=== PATIENT | female | born 1950 | race Caucasian/White ===

== ENCOUNTER 2016-09-22 11:32 | Emergency (ER) | payer OTHER ==
[~2016-09-22] VITALS: Ht 152.4 cm; Wt 65.5 kg
[~2016-09-22 11:32] MED LIST: AMLO5TAB4 PO; ATOR10TA65 PO; CIPR500T4 PO; FAMO40TA52 PO; FLUT9.9S NASAL; HYDR-3720 PO; LEVO75TA65 PO; LISI-313 PO; METR500T14 PO; OMEP40CA6 PO; PANT40TA3 PO
[2016-09-22 12:07] VITALS: Ht 152.4 cm; Wt 65.5 kg
[2016-09-22] MEDS ORDERED: SOD CHLORIDE 0.9% 1,000 ML IV STA (16:31)
[2016-09-22] MEDS ORDERED: KETOROLAC 15 MG INJ IV STA (16:31)
[2016-09-22] MEDS ORDERED: ONDANSETRON 4 MG INJ IV STA (16:31)
[2016-09-22] MEDS ORDERED: ENALAPRILAT 1.25 MG INJ IV ONE (17:00)
[2016-09-22 17:10] LABS: ADD SCAN DIFF NO
[2016-09-22 17:12] VITALS: RESP 16
[2016-09-22 17:13] LABS: BASOPHILS % 0.3 % (0.0-2.0); EOSINOPHILS # 0.1 10^3/ul (0.0-0.5); EOSINOPHILS % 0.8 % (0.0-7.0); HEMATOCRIT 38.1 % (37.0-47.0); HEMOGLOBIN 12.6 g/dl (12.0-16.0); LYMPHOCYTES # 2.4 10^3/ul (0.8-2.9); MEAN CORPUSCULAR HGB CONC 33.1 g/dl (32.0-37.0); MEAN CORPUSCULAR VOLUME 81.8 fl (82.0-101.0); MEAN PLATELET VOLUME 9.6 fl (7.4-10.4); MONOCYTE # 1.1 10^3/ul (0.3-0.9); MONOCYTES % 7.7 % (0.0-11.0); NEUTROPHIL # 10.6 10^3/ul (1.6-7.5); NEUTROPHILS % 73.8 % (39.0-77.0); PLATELET COUNT 380 10^3/UL (140-415); RED BLOOD COUNT 4.66 10^6/ul (4.20-5.40); WHITE BLOOD COUNT 14.4 10^3/ul (4.8-10.8)
[2016-09-22 17:24] LABS: ALBUMIN 4.6 g/dl (3.3-4.9)
[2016-09-22 17:25] LABS: CHLORIDE 108 mmol/L (97-110); POTASSIUM 4.3 mmol/L (3.5-5.1); SODIUM 146 mmol/L (135-144)
[2016-09-22 17:27] LABS: ALBUMIN/GLOBULIN RATIO 1.02; ALKALINE PHOSPHATASE 157 IU/L (42-121); ANION GAP 20 (8-16); ASPARTATE AMINO TRANSFERASE 26 IU/L (15-46); BILIRUBIN,INDIRECT 0.1 mg/dl (0-1.1); BILIRUBIN,TOTAL 0.1 mg/dl (0.2-1.3); CARBON DIOXIDE 22 mmol/L (21-31); CREATININE 2.01 mg/dl (0.44-1.00); TOTAL PROTEIN 9.1 g/dl (6.1-8.1)
[2016-09-22 17:28] LABS: ALANINE AMINOTRANSFERASE 22 IU/L (13-69); BLOOD UREA NITROGEN 31 mg/dl (7-20); CALCIUM 9.6 mg/dl (8.4-10.2); GLUCOSE 82 mg/dl (70-220)
[2016-09-22] MEDS ORDERED: HYDR-3671 PO (17:34)
--- NOTE | 2016-09-22 17:36 | RADRPT ---
PROCEDURE: XR Chest. CLINICAL INDICATION: Abdominal Pain TECHNIQUE: Single frontal view of the chest was obtained COMPARISON: 06/14/2012 FINDINGS: Atherosclerotic changes are seen in the aortic arch. The cardiac silhouette is unremarkable. The lungs are clear. There is no pleural effusion or pneumothorax. IMPRESSION: No definite abnormalities are identified. RPTAT:AAJJ Chris Whyte Physician Date Time Electronically viewed and signed by Chris Whyte Physician on 09/22/2016 17:36 /
[2016-09-22 17:44] VITALS: BP 168/66; PULSE 83; TEMP 98.7
[2016-09-22 17:44] LABS: TROPONIN-I < 0.012 ng/ml (0.00-0.12)
[2016-09-22 17:46] LABS: ADD UMIC YES; URINE BILIRUBIN (Dip) NEGATIVE (NEGATIVE); URINE BLOOD (Dip) NEGATIVE (NEGATIVE); URINE COLOR LT. YELLOW (YELLOW); URINE GLUCOSE (Dip) NEGATIVE (NEGATIVE); URINE KETONES (Dip) NEGATIVE (NEGATIVE); URINE LEUKOCYTE ESTERASE (Dip) NEGATIVE (NEGATIVE); URINE NITRITE (Dip) NEGATIVE (NEGATIVE); URINE TOTAL PROTEIN (Dip) 2+ (NEGATIVE); URINE UROBILINOGEN (Dip) 0.2 E.U./dL (0.1-1.0)
[2016-09-22 18:06] LABS: BACTERIA,URINE OCCASIONAL; URINE RBCS 0-2 /HPF (0)
--- NOTE | 2016-09-22 22:54 | ERD ---
ER Documentation Chief Complaint Date/Time DATE: 09/22/16 TIME: 22:46 Chief Complaint REFERRED BY CLINIC FOR HTN. BP AT TRIAGE 212/91. HPI 66-year-old woman sent here by PMD for evaluation of hypertension. Systolic blood pressure was over 200 mmHg despite using her medications as prescribed. She denies chest pain or shortness of breath, no calf or leg swelling, no fevers or chills, no vomiting or diarrhea. ROS All systems reviewed and are negative except as per history of present illness. Medications Home Meds Reported Medications Hydralazine Hcl* (Hydralazine Hcl*) 25 Mg Tab, 25 MG PO QID, #60 TAB 09/22/16 Atorvastatin Calcium (Atorvastatin Calcium) 10 Mg Tablet, 10 MG PO QHS, #30 TAB 01/11/16 Levothyroxine Sodium* (Levoxyl*) 75 Mcg Tablet, 75 MCG PO BEFORE BREAKFAST, #30 TAB 01/11/16 Omeprazole* (Omeprazole*) 40 Mg Capsule.dr, 40 MG PO DAILY, #30 CAP 01/11/16 Discontinued Reported Medications Famotidine* (Famotidine*) 40 Mg Tablet, 40 MG PO HS, #30 TAB 01/11/16 Fluticasone Propionate (Flonase Allergy Relief) 9.9 Ml [place].susp, 2 SPRAY NASAL DAILY, #1 BOTTLE TO EACH NOSTRIL 01/11/16 Pantoprazole* (Protonix*) 40 Mg Tablet.dr, 40 MG PO DAILY, TAB 01/11/16 Lisinopril* (Lisinopril*) 5 Mg Tablet, 5 MG PO DAILY, #30 TAB 01/11/16 Amlodipine Besylate* (Norvasc*) 5 Mg Tablet, 5 MG PO DAILY 06/11/12 Discontinued Scripts Hydrocodone Bit-Acetaminophen* ([place]*) 7.5-325 Tablet, 1 TAB PO Q4H Y for PAIN , #20 TAB Prov:CHICO ANG DO 01/11/16 Metronidazole* (Metronidazole*) 500 Mg Tablet, 500 MG PO TID, #30 TAB Prov:CHICO ANG DO 01/11/16 Ciprofloxacin Hcl* (Ciprofloxacin Hcl*) 500 Mg Tablet, 500 MG PO BID for 7 Days , TAB Prov:CHICO ANG DO 01/11/16 Allergies Allergies: Coded Allergies: No Known Allergies (Verified Allergy, Unknown, 09/22/16) PMhx/Soc Hypertension, obesity, gastritis, hypothyroidism, hypercholesterolemia History of Surgery: Yes (left hemicolectomy) Anesthesia Reaction: No Hx Neurological Disorder: No Hx Respiratory Disorders: No Hx Cardiac Disorders: Yes (HTN; HYPERLIPIDEMIA) Hx Psychiatric Problems: No Hx Miscellaneous Medical Probl: Yes (diverticulitis, hyperlipidemia) Hx Alcohol Use: No Hx Substance Use: No Hx Tobacco Use: No Smoking Status: Never smoker FmHx Family History: No diabetes Physical Exam Vitals Vital Signs Date Time Temp Pulse Resp B/P Pulse Ox O2 Delivery O2 Flow Rate FiO2 09/22/16 17:44 98.7 83 168/66 100 Room Air 09/22/16 17:12 98.7 84 16 174/71 100 Room Air 09/22/16 15:25 95 16 235/102 100 Room Air 09/22/16 14:22 94 16 212/96 100 Room Air 09/22/16 13:39 104 20 223/101 Room Air 09/22/16 12:07 98.8 107 20 212/91 97 Physical Exam GENERAL: Well-developed, well-nourished, well-hydrated, in no apparent distress , looks nontoxic in appearance HEENT: Moist mucous membranes, pink conjunctiva, no cervical spine tenderness or step-off deformities, no goiter, no jaundice or icterus, extraocular movements intact without pain. No submandibular induration, and no pharyngeal erythema NEURO: Alert and oriented 3, cranial nerves II through XII intact bilaterally, pupils equal round reactive to light, no focal deficits or facial asymmetry, sensation intact distally Strength 5/5 in upper and lower extremities bilaterally CARDIAC: Regular rate and rhythm, no murmurs rubs or gallops LUNGS: Clear bilaterally no wheezing crackles or stridor ABDOMEN: Soft nontender, no guarding, no rigidity, no rebound, no psoas sign no obturator sign. Normoactive bowel sounds SKIN: Warm and dry to touch, no abrasions, contusions, or hematomas, no lacerations, no ecchymosis, no target lesions, and without ulcers EXTREMITIES: No clubbing cyanosis or edema, calves are bilaterally symmetrical, no Homans sign, no popliteal cord sign. Distal pulses equal and bilateral PSYCH: Normal affect without agitation or irritability Result Diagram: 09/22/16 1649 09/22/16 1649 Results 24 hrs Laboratory Tests Test 09/22/16 16:49 09/22/16 16:56 White Blood Count 14.410^3/ul Red Blood Count 4.6610^6/ul Hemoglobin 12.6g/dl Hematocrit 38.1% Mean Corpuscular Volume 81.8fl Mean Corpuscular Hemoglobin 27.0pg Mean Corpuscular Hemoglobin Concent 33.1g/dl Red Cell Distribution Width 14.0% Platelet Count 58960^3/UL Mean Platelet Volume 9.6fl Neutrophils % 73.8% Lymphocytes % 17.0% Monocytes % 7.7% Eosinophils % 0.8% Basophils % 0.3% Nucleated Red Blood Cells % 0.0/100WBC Neutrophils # 10.610^3/ul Lymphocytes # 2.410^3/ul Monocytes # 1.110^3/ul Eosinophils # 0.110^3/ul Basophils # 0.010^3/ul Nucleated Red Blood Cells # 0.010^3/ul Sodium Level 146mmol/L Potassium Level 4.3mmol/L Chloride Level 108mmol/L Carbon Dioxide Level 22mmol/L Anion Gap 20 Blood Urea Nitrogen 31mg/dl Creatinine 2.01mg/dl Glucose Level 82mg/dl Calcium Level 9.6mg/dl Total Bilirubin 0.1mg/dl Direct Bilirubin 0.00mg/dl Indirect Bilirubin 0.1mg/dl Aspartate Amino Transf (AST/SGOT) 26IU/L Alanine Aminotransferase (ALT/SGPT) 22IU/L Alkaline Phosphatase 157IU/L Troponin I < 0.012ng/ml Total Protein 9.1g/dl Albumin 4.6g/dl Globulin 4.50g/dl Albumin/Globulin Ratio 1.02 Lipase 322U/L Urine Color LT. YELLOW Urine Clarity CLEAR Urine pH 6.0 Urine Specific [place] <=1.005 Urine Ketones NEGATIVE Urine Nitrite NEGATIVE Urine Bilirubin NEGATIVE Urine Urobilinogen 0.2 E.U./dL Urine Leukocyte Esterase NEGATIVE Urine Microscopic RBC 0-2/HPF Urine Microscopic WBC 0-2/HPF Urine Bacteria OCCASIONAL Urine Hemoglobin NEGATIVE Urine Glucose NEGATIVE% Urine Total Protein 2+ Current Medications Medications (Trade) Dose Ordered Sig/Barbara Route PRN Reason Start Time Stop Time Status Last Admin Dose Admin Sodium Chloride (NS) 1,000 ml @ 1,000 mls/hr Q1H STAT IV 09/22/16 16:31 09/22/16 17:30 DC 09/22/16 16:59 Ondansetron HCl (Zofran Inj) 4 mg ONCE STAT IV 09/22/16 16:31 09/22/16 16:33 DC 09/22/16 16:52 Ketorolac Tromethamine (Toradol) 15 mg ONCE STAT IV 09/22/16 16:31 09/22/16 16:33 DC 09/22/16 16:52 Enalaprilat (Vasotec Iv) 1.25 mg ONCE ONCE IV 09/22/16 17:00 09/22/16 17:01 DC 09/22/16 16:53 Procedures/MDM IV line was established patient was placed on manager cardiac cath rhythm strip revealed a sinus rhythm at about 80 bpm with upright P and T waves. Patient was afebrile. EKG performed, read by me revealed a normal sinus rhythm at 86 bpm, normal axis , with a right ventricular conduction delay and a QRS duration of 110 ms, no concerning ST elevations or depressions noted. I administered 1 L normal saline intravenously for body aches she received Toradol 15 mg IV with good pain control. Also administered Zofran 4 mg IV and enalapril 1.25 mg IV. One AP view of the chest performed, read by me reveals no acute infiltrates, normal mediastinum, sharp costophrenic and cardiac borders, no air under the diaphragm. Otherwise unremarkable chest x-ray. CBC was unremarkable, electrolytes revealed dehydration with a BUN/creatinine of 31/2, liver function tests were normal, troponin was negative. Urine analysis was negative for infection. Patient's systolic blood pressure was initially over 220 mmHg although with above medications her pain resolved and blood pressure fell to within normal limits. She has no neurologic complaints but funduscopic examination was deferred to her dinkey skinner. I did recommend she follow-up with 1 but she has no complaints of recent visual disturbance. Differential diagnoses considered, included but not limited to acute coronary syndrome, pulmonary embolism, aortic dissection, abdominal aortic aneurysm, sepsis, stroke, meningitis, encephalitis, pneumonia, appendicitis, cholecystitis , bowel obstruction, pyelonephritis, nephrolithiasis, cystitis, as well as metabolic, hematologic, and electrolyte abnormalities. As well as abscess, cellulitis, fractures, and dislocations. Patient feels much better at this time, and vital signs are normal, symptoms have improved. I did give strict instructions to return to the ED if symptoms continue or worsen, patient will otherwise follow-up with primary care physician. Patient understood instructions and agreed to plan. Departure Diagnosis: Primary Impression: Hypertensive urgency Ruled Out: Hypertension Condition: Good Patient Instructions: High Blood Pressure (Hypertension) HERSON SAPP MD Sep 22, 2016 22:54
== END 2016-09-22 18:32 | disposition home or self-care (01) ==
LOC: E/R 11:32
DX: I16.0 Hypertensive urgency (principal); E03.9 Hypothyroidism, unspecified; E66.9 Obesity, unspecified; Z68.28 Body mass index [BMI] 28.0-28.9, adult
CPT/HCPCS: 36415; 71010; 80053; 81001; 83690; 84484; 85025; 93005; 96374; 96375; 99285; J1885; J2405; J7030; 81003

== ENCOUNTER 2016-11-26 17:19 | Emergency (ER) | payer OTHER ==
[~2016-11-26] VITALS: Wt 70.0 kg
[~2016-11-26 17:19] MED LIST changes: -AMLO5TAB4 PO; -CIPR500T4 PO; -FAMO40TA52 PO; -FLUT9.9S NASAL; +HYDR-3671 PO; -HYDR-3720 PO; -LISI-313 PO; -METR500T14 PO; -PANT40TA3 PO
--- NOTE | 2016-11-26 18:22 | ERA ---
ER Documentation Chief Complaint Date/Time DATE: 11/26/16 TIME: 18:22 Chief Complaint LOW BACK PAIN, ONSET TODAY, NO INJURY HPI The patient is a 66-year-old female, presenting to the ER because of right low back pain, right flank pain that began about 4 PM today, 02/09, she denies any trauma, denies similar symptoms previously, denies fecal or urinary incontinence. She denies fever, chills, neck pain, chest pain, dyspnea, nausea , vomiting. She does not smoke nor drink Past medical history: Hypertension, dyslipidemia, chronic kidney disease Past surgical history: Intestinal surgery due to diverticulitis, 2 ROS All systems reviewed and are negative except as per history of present illness. Medications Home Meds Active Scripts Hydrocodone/Acetaminophen ([place] 5-325 Tablet) 1 Each Tablet, 1 TAB PO Q6H Y for PAIN, #7 TAB Prov:MIRYAM VIDAL MD 11/26/16 Reported Medications Hydralazine Hcl* (Hydralazine Hcl*) 25 Mg Tab, 25 MG PO QID, #60 TAB 09/22/16 Atorvastatin Calcium (Atorvastatin Calcium) 10 Mg Tablet, 10 MG PO QHS, #30 TAB 01/11/16 Levothyroxine Sodium* (Levoxyl*) 75 Mcg Tablet, 75 MCG PO BEFORE BREAKFAST, #30 TAB 01/11/16 Omeprazole* (Omeprazole*) 40 Mg Capsule.dr, 40 MG PO DAILY, #30 CAP 01/11/16 Allergies Allergies: Coded Allergies: No Known Allergies (Verified Allergy, Unknown, 09/22/16) PMhx/Soc History of Surgery: Yes (left hemicolectomy) Anesthesia Reaction: No Hx Neurological Disorder: No Hx Respiratory Disorders: No Hx Cardiac Disorders: Yes (HTN; HYPERLIPIDEMIA) Hx Psychiatric Problems: No Hx Miscellaneous Medical Probl: Yes (diverticulitis, hyperlipidemia) Hx Alcohol Use: No Hx Substance Use: No Hx Tobacco Use: No Physical Exam Vitals Vital Signs Date Time Temp Pulse Resp B/P Pulse Ox O2 Delivery O2 Flow Rate FiO2 11/26/16 17:35 99.5 77 18 168/79 98 Physical Exam Const: No acute distress. Head: Atraumatic. Eyes: Normal Conjunctiva. ENT: Normal External Ears, Nose and Mouth. Neck: Full range of motion. No meningismus. Resp: Clear to auscultation bilaterally. Cardio: Regular rate and rhythm. Abd: Soft, non distended, normal bowel sounds, minimal right flank tenderness, right lumbar tenderness, no crepitus, no spinal tenderness Skin: No petechiae or rashes. Back: No midline or flank tenderness. Ext: No cyanosis, or edema. Neur: Awake and alert. No focal deficit Psych: Normal Mood and Affect. Result Diagram: 11/26/16 1848 11/26/16 1848 Results 24 hrs Laboratory Tests Test 11/26/16 18:48 11/26/16 19:32 White Blood Count 13.510^3/ul Red Blood Count 4.2010^6/ul Hemoglobin 11.5g/dl Hematocrit 34.0% Mean Corpuscular Volume 81.0fl Mean Corpuscular Hemoglobin 27.4pg Mean Corpuscular Hemoglobin Concent 33.8g/dl Red Cell Distribution Width 13.6% Platelet Count 35133^3/UL Mean Platelet Volume 9.8fl Neutrophils % 76.5% Lymphocytes % 15.0% Monocytes % 5.9% Eosinophils % 2.0% Basophils % 0.2% Nucleated Red Blood Cells % 0.0/100WBC Neutrophils # 10.310^3/ul Lymphocytes # 2.010^3/ul Monocytes # 0.810^3/ul Eosinophils # 0.310^3/ul Basophils # 0.010^3/ul Nucleated Red Blood Cells # 0.010^3/ul Sodium Level 140mmol/L Potassium Level 5.1mmol/L Chloride Level 107mmol/L Carbon Dioxide Level 21mmol/L Anion Gap 17 Blood Urea Nitrogen 35mg/dl Creatinine 1.91mg/dl Glucose Level 102mg/dl Calcium Level 9.7mg/dl Total Bilirubin 0.2mg/dl Direct Bilirubin 0.00mg/dl Indirect Bilirubin 0.2mg/dl Aspartate Amino Transf (AST/SGOT) 27IU/L Alanine Aminotransferase (ALT/SGPT) 30IU/L Alkaline Phosphatase 136IU/L Total Protein 8.7g/dl Albumin 5.0g/dl Globulin 3.70g/dl Albumin/Globulin Ratio 1.35 Lipase 359U/L Bedside Urine pH (LAB) 6.5 Bedside Urine Protein (LAB) 2+ Bedside Urine Glucose (UA) Negative Bedside Urine Ketones (LAB) Negative Bedside Urine Blood Negative Bedside Urine Nitrite (LAB) Negative Bedside Urine Leukocyte Esterase (L Negative Current Medications Medications (Trade) Dose Ordered Sig/Barbara Route PRN Reason Start Time Stop Time Status Last Admin Dose Admin Morphine Sulfate (morphine) 4 mg ONCE STAT IV 11/26/16 18:35 11/26/16 18:36 DC 11/26/16 18:54 Ondansetron HCl (Zofran Inj) 4 mg ONCE STAT IV 11/26/16 18:35 11/26/16 18:36 DC 11/26/16 18:53 Procedures/MDM [place] [id number] Radiology Main Line: [phone] DIAGNOSTIC IMAGING REPORT Patient: ERIKA ROJO : 1950 Age: 66 Sex: F MR #: [id number] DOS: 11/26/16 193 Ordering MD: MIRYAM VIDAL MD Location: [facility] Room/Bed: PROCEDURE: CT abdomen and pelvis without contrast. CLINICAL INDICATION: Abdominal pain TECHNIQUE: CT scan of the abdomen and pelvis without contrast was performed on a multislice CT scanner utilizing axial imaging from the lung bases through the pubis symphysis. The patient was scanned without intravenous contrast. Sagittal and coronal reformatted images were made. The CTDIvol is 14.81 mGy and the DLP is 134.95 mGycm. One of the following 3 dose reduction techniques were used during this CT examination: automated exposure control; adjustment of the mA and /or kV according to patient size; or use of iterative reconstructon technique. COMPARISON: None. FINDINGS: The lung bases are clear. The heart size is normal. Vascular calcifications are present of the aorta and the coronary arteries. No pericardial or pleural effusion is present. No pericardial or pleural effusion is present. A moderate hiatal hernia is present. The visualized liver is normal size and attenuation. The spleen, pancreas, gallbladder, and bilateral adrenal glands are normal. The bilateral kidneys demonstrate no evidence for hydroureteronephrosis or nephroureterolithiasis. The cortices are mildly lobular. The aorta demonstrates vascular calcifications without aneurysmal dilatation. The visualized bowel is nonobstructive. Mild diverticulosis is present without evidence for acute diverticulitis or appendicitis. The appendix is normal. An anastomotic sutures are noted with in the sigmoid colon. No evidence for pneumoperitoneum or ascites is present. The visualized urinary bladder is well distended. A nonspecific partially calcified 1.5 cm density is noted immediately deep to the left anterior rectus sheath with in the pelvis. This may represent postsurgical changes. The visualized uterus and bilateral adnexa are normal. The osseous structures demonstrate generalized osteopenia and degenerative spondylosis of the imaged spine. IMPRESSION: 1. Moderate hiatal hernia 2. Mild atherosclerotic vascular disease 3. Mild diverticulosis without evidence for acute diverticulitis or appendicitis. 4. An anastomotic sutures in the sigmoid colon and nonspecific 1.5 cm anterior pelvic partially calcified soft tissue density which may represent postsurgical changes. 5. Degenerate spondylosis and postsurgical changes. RPTAT: HDC .Yen Mireles MD, MD Date Time Electronically viewed and signed by .Yen Mireles MD, MD on 11/26/2016 20: 44 .C/ CC: MIRYAM VIDAL MD MEDICAL MAKING DECISION: The patient is a 66-year-old female, presenting with acute right back pain, acute right flank with unclear etiology. She was treated with morphine 4 mg IV for pain, Zofran 4 IV for nausea with good response The differential diagnoses considered include but are not limited to cholelithiasis, cholecystitis, cystitis, pancreatitis, hepatitis, gastritis, peptic ulcer disease, gastric ulcer, appendicitis, diverticulitis, cholangitis, choledocholithiasis, partial small bowel obstruction. Departure Diagnosis: Primary Impression: Back pain Additional Impressions: Flank pain Abnormal LFTs Condition: Good Comments She was discharged with [place] I discussed the findings with the patient. I advised the patient to follow-up with the primary physician in about 1-2 days, sooner if needed and return if any concern. MIRYAM VIDAL MD Nov 26, 2016 18:22
[2016-11-26] MEDS ORDERED: morphine 4 MG/ML VIAL IV STA (18:35)
[2016-11-26] MEDS ORDERED: ONDANSETRON 4 MG INJ IV STA (18:35)
[2016-11-26 19:02] LABS: ADD SCAN DIFF NO
[2016-11-26 19:08] LABS: BASOPHILS % 0.2 % (0.0-2.0); EOSINOPHILS # 0.3 10^3/ul (0.0-0.5); HEMOGLOBIN 11.5 g/dl (12.0-16.0); MEAN CORPUSCULAR HEMOGLOBIN 27.4 pg (29.0-33.0); MEAN CORPUSCULAR HGB CONC 33.8 g/dl (32.0-37.0); MEAN PLATELET VOLUME 9.8 fl (7.4-10.4); MONOCYTE # 0.8 10^3/ul (0.3-0.9); MONOCYTES % 5.9 % (0.0-11.0); NEUTROPHIL # 10.3 10^3/ul (1.6-7.5); NEUTROPHILS % 76.5 % (39.0-77.0); PLATELET COUNT 310 10^3/UL (140-415); RED CELL DISTRIBUTION WIDTH 13.6 % (11.5-14.5); WHITE BLOOD COUNT 13.5 10^3/ul (4.8-10.8)
[2016-11-26 19:28] LABS: URINE BLOOD (Dip) POC Negative (NEGATIVE)
[2016-11-26 19:30] LABS: ALBUMIN/GLOBULIN RATIO 1.35; BILIRUBIN,INDIRECT 0.2 mg/dl (0-1.1); BILIRUBIN,TOTAL 0.2 mg/dl (0.2-1.3); CALCIUM 9.7 mg/dl (8.4-10.2); CREATININE 1.91 mg/dl (0.44-1.00); TOTAL PROTEIN 8.7 g/dl (6.1-8.1)
[2016-11-26 19:33] LABS: POTASSIUM 5.1 mmol/L (3.5-5.1)
--- NOTE | 2016-11-26 20:44 | RADRPT ---
PROCEDURE: CT abdomen and pelvis without contrast. CLINICAL INDICATION: Abdominal pain TECHNIQUE: CT scan of the abdomen and pelvis without contrast was performed on a multislice CT [facility] utilizing axial imaging from the lung bases through the pubis symphysis. The patient was scann ed without intravenous contrast. Sagittal and coronal reformatted images were made. The CTDIvol is 14.81 mGy and the DLP is 134.95 mGycm. One of the following 3 dose reduction techniques were used during this CT examination: automated exp osure control; adjustment of the mA and /or kV according to patient size; or use of iterative recons tructon technique. COMPARISON: None. FINDINGS: The lung bases are clear. The heart size is normal. Vascular calcifications are present of the aort a and the coronary arteries. No pericardial or pleural effusion is present. No pericardial or pleu ral effusion is present. A moderate hiatal hernia is present. The visualized liver is normal size and attenuation. The spleen, pancreas, gallbladder, and bilater al adrenal glands are normal. The bilateral kidneys demonstrate no evidence for hydroureteronephrosis or nephroureterolithiasis. The cortices are mildly lobular. The aorta demonstrates vascular calcifications without aneurysmal dilatation. The visualized bowel is nonobstructive. Mild diverticulosis is present without evidence for acute d iverticulitis or appendicitis. The appendix is normal. An anastomotic sutures are noted with in the sigmoid colon. No evidence for pneumoperitoneum or ascites is present. The visualized urinary bladder is well distended. A nonspecific partially calcified 1.5 cm density is noted immediately deep to the left anterior rectus sheath with in the pelvis. This may represent postsurgical changes. The visualized uterus and bilateral adnexa are normal. The osseous structures demonstrate generalized osteopenia and degenerative spondylosis of the imaged spine. IMPRESSION: 1. Moderate hiatal hernia 2. Mild atherosclerotic vascular disease 3. Mild diverticulosis without evidence for acute diverticulitis or appendicitis. 4. An anastomotic sutures in the sigmoid colon and nonspecific 1.5 cm anterior pelvic partially arabella cified soft tissue density which may represent postsurgical changes. 5. Degenerate spondylosis and postsurgical changes. RPTAT: HDC .Yen Mireles MD, MD Date Time Electronically viewed and signed by .Yen Mireles MD, on 11/26/2016 20:44 .C/
[2016-11-26] MEDS ORDERED: HYDR-906 PO (20:59)
== END 2016-11-26 21:19 | disposition home or self-care (01) ==
LOC: FTE 17:19
DX: M54.5 Low back pain (principal); R10.9 Unspecified abdominal pain; R94.5 Abnormal results of liver function studies; I12.9 Hypertensive chronic kidney disease with stage 1 through stage 4 chronic kidney disease, or unspecified chronic kidney disease; N18.9 Chronic kidney disease, unspecified
CPT/HCPCS: 74176; 80053; 81003; 83690; 85025; J2270; J2405; 36415; 96374; 96375

== ENCOUNTER 2018-06-15 00:25 | Emergency (ER) | payer OTHER ==
[~2018-06-15] VITALS: Ht 152.4 cm; Wt 68.2 kg
[~2018-06-15 00:25] MED LIST changes: +HYDR-4011 PO
[2018-06-15 00:34] VITALS: Ht 152.4 cm; Wt 68.2 kg
[2018-06-15 05:57] VITALS: BP 149/82; PULSE 71; RESP 16
--- NOTE | 2018-06-25 00:04 | ERD ---
ER Documentation Chief Complaint Chief Complaint chest pain x 1 day HPI This 60-year-old female chest pain for 1 day. She said it happened after she got into an argument she feels very anxious. No fevers no chills no nausea no vomiting. No other current complaints. ROS All systems reviewed and are negative except as per history of present illness. Medications Home Meds Active Scripts Hydrocodone/Acetaminophen ([place] 5-325 Tablet) 1 Each Tablet, 1 TAB PO Q6H PRN for PAIN, #7 TAB Prov:MIRYAM VIDAL MD 11/26/16 Reported Medications Hydralazine Hcl* (Hydralazine Hcl*) 25 Mg Tab, 25 MG PO QID, #60 TAB 09/22/16 Atorvastatin Calcium (Atorvastatin Calcium) 10 Mg Tablet, 10 MG PO QHS, #30 TAB 01/11/16 Levothyroxine Sodium* (Levoxyl*) 75 Mcg Tablet, 75 MCG PO BEFORE BREAKFAST, #30 TAB 01/11/16 Omeprazole* (Omeprazole*) 40 Mg Capsule.dr, 40 MG PO DAILY, #30 CAP 01/11/16 Allergies Allergies: Coded Allergies: No Known Allergies (Verified Allergy, Unknown, 09/22/16) PMhx/Soc History of Surgery: Yes (left hemicolectomy) Anesthesia Reaction: No Hx Neurological Disorder: No Hx Respiratory Disorders: No Hx Cardiac Disorders: Yes (HTN; HYPERLIPIDEMIA) Hx Psychiatric Problems: No Hx Miscellaneous Medical Probl: Yes (diverticulitis, hyperlipidemia) Hx Alcohol Use: No Hx Substance Use: No Hx Tobacco Use: No Smoking Status: Never smoker Physical Exam Physical Exam Const: No acute distress Head: Atraumatic Eyes: Normal Conjunctiva ENT: Normal External Ears, Nose and Mouth. Neck: Full range of motion. No meningismus. Resp: Clear to auscultation bilaterally Cardio: Regular rate and rhythm, no murmurs Abd: Soft, non tender, non distended. Normal bowel sounds Skin: No petechiae or rashes Back: No midline or flank tenderness Ext: No cyanosis, or edema Neur: Awake and alert Psych: Normal Mood and Affect Results 24 hrs Laboratory Tests Test 06/15/18 02:09 White Blood Count 12.8 10^3/ul Red Blood Count 4.53 10^6/ul Hemoglobin 12.2 g/dl Hematocrit 37.5 % Mean Corpuscular Volume 82.8 fl Mean Corpuscular Hemoglobin 26.9 pg Mean Corpuscular Hemoglobin Concent 32.5 g/dl Red Cell Distribution Width 13.9 % Platelet Count 298 10^3/UL Mean Platelet Volume 9.6 fl Immature Granulocytes % 0.300 % Neutrophils % 76.4 % Lymphocytes % 14.7 % Monocytes % 5.5 % Eosinophils % 2.9 % Basophils % 0.2 % Nucleated Red Blood Cells % 0.0 /100WBC Immature Granulocytes # 0.040 10^3/ul Neutrophils # 9.8 10^3/ul Lymphocytes # 1.9 10^3/ul Monocytes # 0.7 10^3/ul Eosinophils # 0.4 10^3/ul Basophils # 0.0 10^3/ul Nucleated Red Blood Cells # 0.0 10^3/ul Sodium Level 145 mmol/L Potassium Level 5.1 mmol/L Chloride Level 114 mmol/L Carbon Dioxide Level 20 mmol/L Anion Gap 11 Blood Urea Nitrogen 36 mg/dl Creatinine 2.10 mg/dl Est Glomerular Filtrat Rate mL/min 23 mL/min Glucose Level 114 mg/dl Calcium Level 10.5 mg/dl Total Bilirubin 0.1 mg/dl Direct Bilirubin 0.00 mg/dl Indirect Bilirubin 0.1 mg/dl Aspartate Amino Transf (AST/SGOT) 24 IU/L Alanine Aminotransferase (ALT/SGPT) 9 IU/L Alkaline Phosphatase 119 IU/L Troponin I < 0.012 ng/ml Total Protein 8.8 g/dl Albumin 4.6 g/dl Globulin 4.20 g/dl Albumin/Globulin Ratio 1.09 Procedures/MDM EKG: Rate/Rhythm: [Normal Sinus Rhythm] QRS, ST, T-waves: [No changes consistent w/ acute ischemia] Impression: [No evidence of ischemia or arrhythmia] Chest X-ray 1V Interpreted by me: Soft Tissue: No acute abnormalities Bones: No acute abnormalities Mediastinum/Cardiac Silhouette/Lungs: [No acute abnormalities] Medical decision making: Patient's thoracic symptoms have stabilized while in the department and are stable for outpatient follow up. Exam and work up not consistent w/ ischemia, arrhythmia, PE or dissection. Departure Diagnosis: Primary Impression: Chest pain Chest pain type: unspecified Qualified Codes: R07.9 - Chest pain, unspecified Condition: Stable Patient Instructions: Chest Pain, Uncertain Cause JONATHAN TAVERAS Jun 25, 2018 00:04
== END 2018-06-15 05:59 | disposition home or self-care (01) ==
LOC: E/R 00:25
DX: R07.9 Chest pain, unspecified (principal); I10 Essential (primary) hypertension
CPT/HCPCS: 36415; 71045; 80053; 84484; 85025; 93005